=== PATIENT | female | born 1945 | race Caucasian/White ===

== ENCOUNTER → 2024-04-05 11:00 | Outpatient (REF) | payer OTHER, SELFPAY | LOC: WDC 11:00 | PROVIDERS: ATTENDING PHYSICIAN Physician Assistant Medical | DX: Z12.31 Encounter for screening mammogram for malignant neoplasm of breast (principal) | CPT/HCPCS: 77063; 77067 ==

== ENCOUNTER → 2024-04-24 12:38 | Outpatient (REF) | payer OTHER, SELFPAY | LOC: HWRAD 12:38 | PROVIDERS: ATTENDING PHYSICIAN Physician Assistant Medical | DX: R10.30 Lower abdominal pain, unspecified (principal); R14.0 Abdominal distension (gaseous) | CPT/HCPCS: 74177; Q9967 ==

== ENCOUNTER → 2024-06-08 08:46 | Outpatient (REF) | payer OTHER, SELFPAY | LOC: HWRAD 08:46 | PROVIDERS: ATTENDING PHYSICIAN Physician Assistant; FAMILY PHYSICIAN Family Medicine; REFERRING PHYSICIAN Specialist | DX: K57.92 Diverticulitis of intestine, part unspecified, without perforation or abscess without bleeding (principal); Z12.11 Encounter for screening for malignant neoplasm of colon | CPT/HCPCS: 74177; Q9967 ==

== ENCOUNTER 2025-02-27 11:10 | Outpatient (RCR) | payer OTHER, SELFPAY | END 2025-02-27 23:59 | disposition home or self-care (01) | LOC: ROT 11:10 | PROVIDERS: ATTENDING PHYSICIAN Physician Assistant; FAMILY PHYSICIAN Physician Assistant Medical | DX: M06.09 Rheumatoid arthritis without rheumatoid factor, multiple sites (principal); Z73.6 Limitation of activities due to disability | CPT/HCPCS: 97018; 97110; 97166; 97535 ==

== ENCOUNTER 2025-03-13 14:35 | Outpatient (RCR) | payer OTHER, SELFPAY | END 2025-03-13 23:59 | disposition home or self-care (01) | LOC: RPT 14:35 | PROVIDERS: ATTENDING PHYSICIAN Physician Assistant; FAMILY PHYSICIAN Physician Assistant Medical | DX: M06.09 Rheumatoid arthritis without rheumatoid factor, multiple sites (principal); Z73.6 Limitation of activities due to disability | CPT/HCPCS: 97018; 97110 ==

== ENCOUNTER → 2025-04-02 13:04 | Outpatient (REF) | payer OTHER, SELFPAY | LOC: HWRAD 13:04 | PROVIDERS: ATTENDING PHYSICIAN Physician Assistant; FAMILY PHYSICIAN Physician Assistant Medical | DX: M81.0 Age-related osteoporosis without current pathological fracture (principal) | CPT/HCPCS: 77080 ==

== ENCOUNTER → 2025-04-09 11:10 | Outpatient (REF) | payer OTHER, SELFPAY | LOC: WDC 11:10 | PROVIDERS: ATTENDING PHYSICIAN Physician Assistant Medical | DX: Z12.31 Encounter for screening mammogram for malignant neoplasm of breast (principal) | CPT/HCPCS: 77063; 77067 ==